=== PATIENT | female | born 1950 | race Caucasian/White ===

== ENCOUNTER 2018-04-10 11:08 | Emergency (ER) | payer MEDICARE ==
[~2018-04-10] VITALS: Ht 177.8 cm; Wt 66.2 kg
[2018-04-10] MEDS ORDERED: ROSU5TAB PO (11:29)
[2018-04-10] MEDS ORDERED: OXYC5CAP18 PO (11:29)
[2018-04-10] MEDS ORDERED: ESCI10TA PO (11:29)
[2018-04-10] MEDS ORDERED: ASPI81TA31 PO (11:29)
[2018-04-10 12:43] LABS: BASOPHILS # (AUTO) 0.1 K/uL (0.0-8.0); BASOPHILS % (AUTO) 0.9 % (0.0-2.0); EOSINOPHILS % (AUTO) 0.7 % (0.0-7.0); HEMATOCRIT 40.5 % (31.2-41.9); HEMOGLOBIN 13.4 g/dL (10.9-14.3); LYMPHOCYTES # (AUTO) 1.2 K/uL (20.0-40.0); LYMPHOCYTES % (AUTO) 19.7 % (20.5-51.5); MEAN CORPUSCULAR HEMOGLOBIN 27.8 uug (24.7-32.8); MEAN CORPUSCULAR HGB CONC 33 g/dL (32.3-35.6); MEAN CORPUSCULAR VOLUME 83.6 fL (75.5-95.3); MONOCYTES # (AUTO) 0.4 K/uL (2.0-10.0); MONOCYTES % (AUTO) 6.8 % (0.0-11.0); NEUTROPHILS # (AUTO) 4.5 K/uL (1.8-8.9); NEUTROPHILS % (AUTO) 71.9 % (38.5-71.5); PLATELET COUNT (AUTO) 178 K/uL (179-408); RED BLOOD CELL COUNT(AUTO) 4.84 MIL/uL (3.63-4.92); WHITE BLOOD COUNT (AUTO) 6.2 K/uL (3.8-11.8)
[2018-04-10 12:50] LABS: CREATININE 0.8 mg/dL (0.6-1.3); POTASSIUM 4.6 mmol/L (3.5-5.1)
[2018-04-10 12:55] LABS: BILIRUBIN,DIRECT 0.1 mg/dL (0.0-0.2); BILIRUBIN,TOTAL 0.3 mg/dL (0.2-1.0); TOTAL PROTEIN, SERUM 7.7 g/dL (6.4-8.2)
--- NOTE | 2018-04-10 13:26 | NUR ---
PT SEEN BY MD, C/O DIZZINESS. ALL NECESSARY TEST DONE. PT DISCHARGED TO HOME. DISCHARGE INSTRUCTIONS AND COPIES OF TESTS GIVEN TO PT.
== END 2018-04-10 13:32 | disposition home or self-care (01) ==
LOC: ER 11:08
DX: R42 Dizziness and giddiness (principal); Z95.2 Presence of prosthetic heart valve; E78.5 Hyperlipidemia, unspecified; Z79.82 Long term (current) use of aspirin; Z79.899 Other long term (current) drug therapy; Z79.891 Long term (current) use of opiate analgesic
CPT/HCPCS: 36415; 70030-TC; 85025; 85730; 93005; A4663